=== PATIENT | male | born 1925 | race Caucasian/White ===

== ENCOUNTER 2017-03-29 09:16 | Inpatient (IN) | payer MEDICARE, BC ==
[2017-03-29 10:17] LABS: VENOUS BLOOD BASE EXCESS 2.1 mmol/L; VENOUS BLOOD HCO3 26.5 mmol/L (20-32); VENOUS BLOOD PCO2 40.4 mmHg (35-63); VENOUS BLOOD PH 7.44 (7.30-7.42)
[2017-03-29 10:18] LABS: ABSOLUTE EOSINOPHILS # (AUTO) 0.6 10^3/uL (0.0-0.6); ABSOLUTE LYMPHOCYTES (AUTO) 1.6 10^3/uL (0.5-4.7); ABSOLUTE MONOCYTES (AUTO) 0.9 10^3/uL (0.1-1.4); ABSOLUTE NEUT (AUTO) 5.9 10^3/uL (1.7-8.2); BASOPHILS % (AUTO) 0.3 % (0-2); EOSINOPHILS % (AUTO) 6.8 % (0-6); HEMATOCRIT 42.6 % (37.9-51.0); HEMOGLOBIN 14.3 g/dL (13.5-17.0); HGB HCT DIFFERENCE 0.3; LYMPHOCYTES % (AUTO) 17.8 % (13-45); MEAN CORPUSCULAR HEMOGLOBIN 31.2 pg (27.0-33.4); MEAN CORPUSCULAR HGB CONC 33.5 g/dL (32.0-36.0); MEAN CORPUSCULAR VOLUME 93 fl (80-97); MONOCYTES % (AUTO) 10.4 % (3-13); RED BLOOD COUNT 4.57 10^6/uL (4.35-5.55); RED CELL DISTRIBUTION WIDTH 13.5 % (11.5-14.0); SEGMENTED NEUTROPHILS % (AUTO) 64.7 % (42-78); WHITE BLOOD COUNT 9.1 10^3/uL (4.0-10.5)
--- NOTE | 2017-03-29 10:26 | ER Document Report ---
ED General - General Chief Complaint: Respiratory Distress Stated Complaint: WEAKNESS Time Seen by Provider: 03/29/17 09:49 Mode of Arrival: Medic Information source: Patient Notes: This is a 89-year-old male brought in from a nursing facility for evaluation of possible pneumonia. Patient was hospitalized approximately a week and a half ago. Had a sacral fracture. Has been coughing and looking like he was more short of breath. Was sent here for rule out pneumonia. Patient denies any pain other than in his "butt" TRAVEL OUTSIDE OF THE [place] IN LAST 30 DAYS: No - HPI Onset: Last week Onset/Duration: Gradual - Related Data Allergies/Adverse Reactions: No Known Allergies Allergy (Unverified 04/18/13 01:12) Home Medications: Current Home Medications Guaifenesin [Mucinex] 600 mg PO BID 03/29/17 [History] Ipratropium/Albuterol Sulfate [Duoneb 3 ml Ampul] 1 pkg IN Q6 PRN 03/29/17 [ History] Past Medical History - General Information source: Friend, Transfer Record - Social History Smoking Status: Never Smoker Chew tobacco use (# tins/day): No Frequency of alcohol use: None Drug Abuse: None Family History: Reviewed & Not Pertinent Patient has suicidal ideation: No Patient has homicidal ideation: No - Past Medical History Cardiac Medical History: Reports: Hx Coronary Artery Disease, Hx Heart Attack - bypass, Hx Hypercholesterolemia Pulmonary Medical History: Reports: Hx Pneumonia - 2012 Denies: Hx Tuberculosis Renal/ Medical History: Denies: Hx Peritoneal Dialysis Musculoskeltal Medical History: Reports Hx Arthritis, Reports Hx Muscle Weakness , Reports Hx Musculoskeletal Deformity, Reports Hx Musculoskeletal Trauma Traumatic Medical History: Reports: Hx Fractures, Hx Traumatic Brain Injury Past Surgical History: Reports: Hx Appendectomy, Hx Cardiac Catheterization, Hx Cardiac Surgery - cardiac bypass, Hx Coronary Artery Bypass Graft, Hx Orthopedic Surgery - left hip replacement, ORIF of left arm - Immunizations Immunizations up to date: Yes Hx Diphtheria, Pertussis, Tetanus Vaccination: Yes Hx Pneumococcal Vaccination: 05/25/09 Review of Systems - Review of Systems Constitutional: No symptoms reported EENT: No symptoms reported Cardiovascular: No symptoms reported Respiratory: No symptoms reported, Cough, Short of breath Gastrointestinal: No symptoms reported Genitourinary: No symptoms reported Male Genitourinary: No symptoms reported Musculoskeletal: No symptoms reported, Other - Sacral painhip pain Skin: No symptoms reported Hematologic/Lymphatic: No symptoms reported Neurological/Psychological: No symptoms reported Physical Exam - Vital signs Vitals: Temp Pulse BP Pulse Ox 98.0 F 75 132/56 H 91 L 03/29/17 09:23 03/29/17 09:23 03/29/17 09:23 03/29/17 09:23 Interpretation: Normal - General General appearance: Appears well, Alert - HEENT Head: Normocephalic, Atraumatic Eyes: Normal Pupils: PERRL - Respiratory Respiratory status: No respiratory distress Chest status: Nontender Breath sounds: Normal Chest palpation: Normal - Cardiovascular Rhythm: Regular Heart sounds: Normal auscultation Murmur: No - Abdominal Inspection: Normal Distension: No distension Bowel sounds: Normal Tenderness: Nontender Organomegaly: No organomegaly - Back Back: Normal, Tender - Sacral tenderness - Extremities General upper extremity: Normal inspection, Nontender, Normal color, Normal ROM , Normal temperature General lower extremity: Normal inspection, Nontender, Normal color, Normal ROM , Normal temperature, Normal weight bearing. No: Murtaza's sign - Neurological Neuro grossly intact: Yes Cognition: Normal Orientation: AAOx4 Gerda Coma Scale Eye Opening: Spontaneous [place] Coma Scale Verbal: Oriented [place] Coma Scale Motor: Obeys Commands Gerda Coma Scale Total: 15 Speech: Normal Motor strength normal: LUE, RUE, LLE, RLE Sensory: Normal - Psychological Associated symptoms: Normal affect, Normal mood - Skin Skin Temperature: Warm Skin Moisture: Dry Skin Color: Normal Course - Re-evaluation Re-evalutation: 03/29/17 10:56 Well-appearing 89-year-old male no acute distress at this time. Was hospitalized for pain management and sacral fracture. Will get chest x-ray, basic labs, repeat pelvis x-ray. May need to do a angiogram to rule out PE as well. 03/29/17 12:34 Waiting on results from CT angioma at this time. I do not feel patient is in respiratory distress patient is actually oxygenating quite well. Lungs are clear. 03/29/17 13:32 Laboratory 03/29/17 03/29/17 03/29/17 09:35 09:35 09:35 WBC 9.1 RBC 4.57 Hgb 14.3 Hct 42.6 MCV 93 MCH 31.2 MCHC 33.5 RDW 13.5 Plt Count 352 Seg Neutrophils % 64.7 Lymphocytes % 17.8 Monocytes % 10.4 Eosinophils % 6.8 H Basophils % 0.3 Absolute Neutrophils 5.9 Absolute Lymphocytes 1.6 Absolute Monocytes 0.9 Absolute Eosinophils 0.6 Absolute Basophils 0.0 PT 15.0 INR 1.10 VBG pH VBG pCO2 VBG HCO3 VBG Base Excess Sodium 143.5 Potassium 4.0 Chloride 107 Carbon Dioxide 27 Anion Gap 10 BUN 15 Creatinine 1.00 Est GFR ( Amer) > 60 Est GFR (Non-Af Amer) > 60 Glucose 127 H POC Glucose Lactic Acid Calcium 8.4 Total Bilirubin 0.7 Direct Bilirubin 0.5 H Indirect Bilirubin Not Reportable Neonat Total Bilirubin Not Reportable AST 24 ALT 35 Alkaline Phosphatase 175 H Total Protein 6.2 L Albumin 3.2 L Urine Color Urine Appearance Urine pH Ur Specific [place] Urine Protein Urine Glucose (UA) Urine Ketones Urine Blood Urine Nitrite Urine Bilirubin Urine Urobilinogen Ur Leukocyte Esterase Urine WBC (Auto) Urine RBC (Auto) U Hyaline Cast (Auto) Squamous Epi Cells Auto Urine Mucus (Auto) Urine Ascorbic Acid 03/29/17 03/29/17 03/29/17 09:35 09:35 10:03 WBC RBC Hgb Hct MCV MCH MCHC RDW Plt Count Seg Neutrophils % Lymphocytes % Monocytes % Eosinophils % Basophils % Absolute Neutrophils Absolute Lymphocytes Absolute Monocytes Absolute Eosinophils Absolute Basophils PT INR VBG pH 7.44 H VBG pCO2 40.4 VBG HCO3 26.5 VBG Base Excess 2.1 Sodium Potassium Chloride Carbon Dioxide Anion Gap BUN Creatinine Est GFR ( Amer) Est GFR (Non-Af Amer) Glucose POC Glucose 105 Lactic Acid 1.1 Calcium Total Bilirubin Direct Bilirubin Indirect Bilirubin Neonat Total Bilirubin AST ALT Alkaline Phosphatase Total Protein Albumin Urine Color Urine Appearance Urine pH Ur Specific [place] Urine Protein Urine Glucose (UA) Urine Ketones Urine Blood Urine Nitrite Urine Bilirubin Urine Urobilinogen Ur Leukocyte Esterase Urine WBC (Auto) Urine RBC (Auto) U Hyaline Cast (Auto) Squamous Epi Cells Auto Urine Mucus (Auto) Urine Ascorbic Acid 03/29/17 10:16 WBC RBC Hgb Hct MCV MCH MCHC RDW Plt Count Seg Neutrophils % Lymphocytes % Monocytes % Eosinophils % Basophils % Absolute Neutrophils Absolute Lymphocytes Absolute Monocytes Absolute Eosinophils Absolute Basophils PT INR VBG pH VBG pCO2 VBG HCO3 VBG Base Excess Sodium Potassium Chloride Carbon Dioxide Anion Gap BUN Creatinine Est GFR ( Amer) Est GFR (Non-Af Amer) Glucose POC Glucose Lactic Acid Calcium Total Bilirubin Direct Bilirubin Indirect Bilirubin Neonat Total Bilirubin AST ALT Alkaline Phosphatase Total Protein Albumin Urine Color YELLOW Urine Appearance SLIGHTLY-CLOUDY Urine pH 6.0 Ur Specific [place] 1.015 Urine Protein NEGATIVE Urine Glucose (UA) NEGATIVE Urine Ketones NEGATIVE Urine Blood NEGATIVE Urine Nitrite NEGATIVE Urine Bilirubin NEGATIVE Urine Urobilinogen 4.0 H Ur Leukocyte Esterase NEGATIVE Urine WBC (Auto) 2 Urine RBC (Auto) 1 U Hyaline Cast (Auto) 1 Squamous Epi Cells Auto 3 Urine Mucus (Auto) RARE Urine Ascorbic Acid NEGATIVE Chest X-Ray 03/29/17 09:19 IMPRESSION: Old CABG Old chronic posttraumatic changes left chest with multiple rib fractures, pleural thickening and chronic left lower lobe volume loss Pelvis X-Ray 03/29/17 10:43 IMPRESSION: Hairline nondisplaced left sacral ala fracture seen on CT exam is not apparent by plain film. Bones are osteoporotic with advanced osteoarthritis right hip, and old left hip replacement. Chest/Abdomen CTA 03/29/17 11:06 IMPRESSION: 1. No PE. 2. Chronic left pleural effusion. There is no evidence of pneumonia. There is no evidence of PE. Patient has old rib fractures with a left sided pleural issues but unchanged from prior. No acute issues at this time. Labs are fairly unremarkable. Comfortable at discharge discharging - Vital Signs Vital signs: Temp Pulse Resp BP Pulse Ox 98.0 F 75 20 141/66 H 95 03/29/17 10:00 03/29/17 09:23 03/29/17 13:01 03/29/17 13:01 03/29/17 13:01 - Laboratory Result Diagrams: 03/29/17 09:35 03/29/17 09:35 Laboratory results interpreted by me: 03/29/17 03/29/17 03/29/17 09:35 09:35 09:35 Eosinophils % 6.8 H VBG pH 7.44 H Glucose 127 H Direct Bilirubin 0.5 H Alkaline Phosphatase 175 H Total Protein 6.2 L Albumin 3.2 L Urine Urobilinogen 03/29/17 10:16 Eosinophils % VBG pH Glucose Direct Bilirubin Alkaline Phosphatase Total Protein Albumin Urine Urobilinogen 4.0 H - EKG Interpretation by [facility] EKG shows normal: Sinus rhythm, [place], Intervals, QRS Complexes, ST-T Waves [place]/QRS: RBBB Discharge - Discharge Clinical Impression: Sacral fracture, closed Qualifiers: Encounter type: sequela Zone of sacrum fracture: unspecified portion of sacrum Qualified Code(s): S32.10XS - Unspecified fracture of sacrum, sequela Condition: Good Disposition: HOME, SELF-CARE Instructions: Coccyx Fracture ([facility]), Cough Suppressant & Expectorant Medications Additional Instructions: No major findings were seen today. You have a stable fracture of your sacrum as known prior previously. There does not appear to be any pneumonia or blood clot in the lung. Please follow-up with your regular doctor. Referrals: DOMENIC GUADARRAMA MD [Primary Care Provider] - Follow up as needed
[2017-03-29 10:35] LABS: ALANINE AMINOTRANSFERASE 35 U/L (21-72); ALBUMIN 3.2 g/dL (3.5-5.0); ALKALINE PHOSPHATASE 175 U/L (38-126); ANION GAP 10 (5-19); ASPARTATE AMINO TRANSFERASE 24 U/L (17-59); BILIRUBIN,DIRECT 0.5 mg/dL (0.0-0.4); BILIRUBIN,TOTAL 0.7 mg/dL (0.2-1.3); BLOOD UREA NITROGEN 15 mg/dL (7-20); CALCIUM 8.4 mg/dL (8.4-10.2); CARBON DIOXIDE 27 mmol/L (22-30); CHLORIDE 107 mmol/L (98-107); GLUCOSE 127 mg/dL (75-110); SODIUM 143.5 mmol/L (137-145); TOTAL PROTEIN 6.2 g/dL (6.3-8.2)
[2017-03-29 10:36] LABS: APPEARANCE,URINE SLIGHTLY-CLOUDY; BILIRUBIN,URINE NEGATIVE (NEGATIVE); GLUCOSE, URINE NEGATIVE (NEGATIVE); KETONES,URINE NEGATIVE (NEGATIVE); LEUKOCYTE ESTERASE,URINE NEGATIVE (NEGATIVE); NITRITE,URINE NEGATIVE (NEGATIVE); PROTEIN,URINE NEGATIVE (NEGATIVE); URINE SPECIFIC GRAVITY 1.015
--- NOTE | 2017-03-29 10:56 | RADIOLOGY REPORT (SQ) ---
EXAM DESCRIPTION: CHEST PA/LAT COMPLETED DATE/TIME: 03/29/2017 10:30 am REASON FOR STUDY: bed 16 sepsis protocol COMPARISON: Chest films 04/21/2013, 04/22/2013, 03/16/2017 EXAM PARAMETERS: NUMBER OF VIEWS: two views TECHNIQUE: Digital Frontal and Lateral radiographic views of the chest acquired. RADIATION DOSE: NA LIMITATIONS: none FINDINGS: LUNGS AND PLEURA: Right lung is clear. On the left side, there is chronic pleural thickening and volume loss/ consolidation in the left lowe r lobe. No acute infiltrates, pleural effusion or pneumothorax. MEDIASTINUM AND HILAR STRUCTURES: No masses or contour abnormalities. HEART AND VASCULAR STRUCTURES: No cardiomegaly. Old sternotomy from CABG BONES: Osteoporotic with multiple old healed left posterior rib fractures HARDWARE: None in the chest. OTHER: No other significant finding. IMPRESSION: Old CABG Old chronic posttraumatic changes left chest with multiple rib fractures, pleural thickening and shop assistant jennifer left lower lobe volume loss TECHNICAL DOCUMENTATION: JOB ID: [id number]- All Rights Reserved
--- NOTE | 2017-03-29 11:36 | RADIOLOGY REPORT (SQ) ---
EXAM DESCRIPTION: PELVIS AP COMPLETED DATE/TIME: 03/29/2017 11:22 am REASON FOR STUDY: recent fx of sacrum, pain worse COMPARISON: CT pelvis 03/13/2017 NUMBER OF VIEWS: One view TECHNIQUE: AP Pelvis LIMITATIONS: Bones are osteoporotic FINDINGS: MINERALIZATION: Osteoporotic HIPS: High-grade joint space narrowing with [id number] appearance right hip. Left total hip replac ement. Femoral component incompletely included in the field of view. PELVIS AND SACRUM: The nondisplaced hairline fracture through the left sacrum seen on CT exam 017 is not apparent by plain film. No other pelvic fractures are suspected by today's plain films. PUBIS AND ISCHIUM: No acute fracture. LOWER LUMBAR SPINE: Ankylosis across the L5-S1 disc space SOFT TISSUES: No findings. OTHER: No other significant finding. IMPRESSION: Hairline nondisplaced left sacral ala fracture seen on CT exam 03/13/2017 is not apparen t by plain film. Bones are osteoporotic with advanced osteoarthritis right hip, and old left hip replacement. TECHNICAL DOCUMENTATION: JOB ID: [id number]- All Rights Reserved
[2017-03-29] MEDS ORDERED: ALBUTEROL SULFATE 0.083% NEB 2.5 MG/3 ML AMPUL NEB ONE (11:39)
--- NOTE | 2017-03-29 12:38 | RADIOLOGY REPORT (SQ) ---
EXAM DESCRIPTION: CTA CHEST COMPLETED DATE/TIME: 03/29/2017 11:54 am REASON FOR STUDY: CT angiogram rule out PE COMPARISON: None. TECHNIQUE: CT scan of the chest performed using helical scanning technique with dynamic intravenous contrast injection. Images reviewed with lung, soft tissue and bone windows. Reconstructed coronal and sagittal MPR images reviewed. Additional 3 dimensional post-processing performed to develop Maximal Intensity Projection images ([place] P). All images stored on PACS. All CT scanners at this facility use dose modulation, iterative reconstruction, and/or weight based d osing when appropriate to reduce radiation dose to as low as reasonably achievable (ALARA). [facility]: Dose Right [facility]: CareDose [facility]: Dose Right [facility]: Teradose 4D [facility]: Sellywhere CONTRAST TYPE AND DOSE: contrast/concentration: Isovue 370.00 mg/ml; Total Contrast Delivered: 82.0 ml; Total Saline Delivered: 110.1 ml Contrast bolus optimized for the pulmonary arteries. Not diagnostic for the aorta. RENAL FUNCTION: BUN 15 creatinine 1.0 RADIATION DOSE: Up-to-date CT equipment and radiation dose reduction techniques were employed. CTDIv ol: 3.3 - 23.5 mGy. DLP: 852 mGy-cm. . LIMITATIONS: Motion. FINDINGS: LUNGS AND PLEURA: Chronic interstitial lung disease. Chronic left lower lobe pleural effu adele volume estimated 500 cc. Trace right pleural effusion. AORTA AND GREAT VESSELS: No aneurysm. Contrast bolus not optimized for the aorta. HEART: No pericardial effusion. Moderate to marked coronary artery calcifications. PULMONARY ARTERIES: No emboli visualized in the main pulmonary arteries or the segmental branches. HILAR AND MEDIASTINAL STRUCTURES: No identified masses or abnormal nodes. HARDWARE: None in the chest. UPPER ABDOMEN: No significant findings. Limited exam. THYROID AND OTHER SOFT TISSUES: No masses. No adenopathy. BONES: No acute or significant finding. 3D MIPS: Confirm above findings. OTHER: No other significant finding. IMPRESSION: 1. No PE. 2. Chronic left pleural effusion. COMMENT: Quality ID # [id number]: Final reports with documentation of one or more dose reduction techniques (e.g., Automated exposure control, adjustment of the mA and/or kV according to patient size, use of iterative reconstruction technique) TECHNICAL DOCUMENTATION: JOB ID: [id number] All Rights Reserved
--- NOTE | 2017-03-29 15:01 | EKG REPORT ---
SEVERITY:- ABNORMAL ECG - SINUS RHYTHM RIGHT BUNDLE BRANCH BLOCK INFERIOR INFARCT, AGE INDETERMINATE : Confirmed by: Lynette Alonso 29-Mar-2017 15:00:12
[2017-03-29] MEDS ORDERED: GLYCERIN (PEDIATRIC) SUPP.RECT PR PRN (19:23)
[2017-03-29] MEDS ORDERED: NITROGLYCERIN 0.4 MG/TAB 25 TAB/BOTTLE SL PRN (19:23)
[2017-03-29] MEDS ORDERED: IPRATROPIUM/ALBUTEROL 0.5-2.5 MG/3 ML AMPUL NEB PRN ×2 (19:23)
--- NOTE | 2017-03-29 20:42 | PDOC H&P ---
History of Present Illness Admission Date/PCP: 03/29/17 16:49 Patient complains of: Shortness of breath History of Present Illness: BÁRBARA ROBERT JR is a 89 year old male with history of CAD status post CABG in the past. Patient had recent admission for sacral fracture after a fall about 2 weeks ago, discharged to rehab. Patient had increased shortness of breath facility and Chest x-ray was done and there was concern for pneumonia. Patient was sent to the ED where evaluation was significant for 500 cc left pleural effusion on CTA of the chest, no PE. BNP elevated at 600. Patient denies chest pain, no palpitations. He has some orthopnea, but no PND. Denies fever or chills. Has intermittent lower extremity swelling. He is being admitted for further evaluation and management. Past Medical History Cardiac Medical History: Reports: Coronary Artery Disease, Myocardial Infarction - bypass, Hyperlipidema Pulmonary Medical History: Reports: Pneumonia - 2012 Renal/ Medical History: Reports: Other - BPH Musculoskeltal Medical History: Reports: Arthritis Traumatic Medical History: Reports: Other - Sacral fracture Past Surgical History Past Surgical History: Reports: Appendectomy, Cardiac Catheterization, Coronary Artery Bypass Graft, Orthopedic Surgery - left hip replacement, ORIF of left arm Social History Smoking Status: Never Smoker Frequency of Alcohol Use: None Hx Recreational Drug Use: No Hx Prescription Drug Abuse: No - Advance Directive Resuscitation Status: Do Not Resuscitate Family History Family History: Reviewed & Not Pertinent Parental Family History Reviewed: Yes Children Family History Reviewed: Yes Sibling(s) Family History Reviewed.: Yes Medication/Allergy Home Medications: Clopidogrel Bisulfate [Plavix 75 mg Tablet] 75 mg PO DAILY 03/14/17 Lansoprazole [Prevacid 15 mg Odt Tablet] 15 mg PO BID 03/14/17 Metoprolol Succinate [Toprol Xl] 25 mg PO Q12 03/14/17 Pravastatin Sodium [Pravachol] 40 mg PO DAILY 03/14/17 Tamsulosin HCl [Flomax 0.4 mg Cap.sr] 0.4 mg PO DAILY 03/14/17 Cholecalciferol (Vitamin D3) [Vitamin D3 2000 unit Tablet] 2,000 unit PO DAILY 03/15/17 Cyanocobalamin (Vitamin B-12) [Vitamin B-12] 1,000 mcg SL DAILY 03/15/17 Furosemide [Lasix 20 mg Tablet] 20 mg PO QAM 03/15/17 Nitroglycerin [Nitrostat 0.4 mg (1/150 Gr) Tabs 25/Bottle] 1 tab SL ASDIR PRN Vitamin E (Dl, Acetate) [Vitamin E 400 Unit Capsule] 400 unit PO DAILY 03/15/17 Aspirin [Aspirin EC] 81 mg PO DAILY 03/16/17 Acetaminophen [Tylenol 325 mg Tablet] 650 mg PO Q8HP PRN 30 Days #100 tablet Docusate Sodium [Colace 100 mg Capsule] 100 mg PO BID #60 capsule 03/23/17 Glycerin [Sani-Supp (Pediatric) 1 Ea Supp.rect] 1 each ND DAILYP PRN #30 supp.rect 03/23/17 Hydrocodone/Acetaminophen [[place] 7.5-325 mg Tablet] 1 tab PO Q6HP PRN #20 tablet 03/23/17 Ipratropium/Albuterol Sulfate [Duoneb 3 ml Ampul] 3 ml NEB RTQ6HP PRN #30 vial.neb 03/23/17 Oxycodone HCl [Oxycontin Sr 10 mg Tablet] 10 mg PO Q12 #14 tab.sr.12h 03/23/17 Polyethylene Glycol 3350 [Miralax Powder 17 gm/Packet] 17 gm PO DAILY #14 powd.pack 03/23/17 Sennosides/Docusate 8.6-50 mg [Senna Plus Tablet] 2 each PO QHS #60 tablet 03/23 Guaifenesin [Mucinex] 600 mg PO BID 03/29/17 Ipratropium/Albuterol Sulfate [Duoneb 3 ml Ampul] 1 pkg IN Q6 PRN 03/29/17 Allergies/Adverse Reactions: No Known Allergies Allergy (Unverified 04/18/13 01:12) Review of Systems Review of Systems: As imaged. Physical Exam Vital Signs: Temp Pulse Resp BP Pulse Ox 98.0 F 75 18 149/65 H 97 03/29/17 10:00 03/29/17 09:23 03/29/17 19:01 03/29/17 19:01 03/29/17 19:27 General appearance: PRESENT: no acute distress, well-developed Head exam: PRESENT: atraumatic, normocephalic Eye exam: PRESENT: EOMI, PERRLA Mouth exam: PRESENT: moist, neck supple Neck exam: PRESENT: full ROM Respiratory exam: PRESENT: crackles, decreased breath sounds Cardiovascular exam: PRESENT: RRR, +S1, +S2 GI/Abdominal exam: PRESENT: soft. ABSENT: tenderness Extremities exam: PRESENT: pedal edema, +1 edema. ABSENT: calf tenderness, joint swelling Neurological exam: PRESENT: alert, oriented to person, oriented to place, CN II- XII grossly intact Psychiatric exam: PRESENT: normal mood. ABSENT: homicidal ideation, suicidal ideation Results Impressions: Chest X-Ray 03/29/17 09:19 IMPRESSION: Old CABG Old chronic posttraumatic changes left chest with multiple rib fractures, pleural thickening and chronic left lower lobe volume loss Pelvis X-Ray 03/29/17 10:43 IMPRESSION: Hairline nondisplaced left sacral ala fracture seen on CT exam is not apparent by plain film. Bones are osteoporotic with advanced osteoarthritis right hip, and old left hip replacement. Chest/Abdomen CTA 03/29/17 11:06 IMPRESSION: 1. No PE. 2. 500 cc left pleural effusion. Assessment & Plan - Diagnosis (1) Recurrent left pleural effusion Is this a current diagnosis for this admission?: Yes Plan: Suspect this is because of patient's shortness of breath. May be secondary to CHF, especially in light of elevated BNP as well. Will treat with Lasix IV 40 mg twice daily for now--patient on Lasix 20 mg as outpatient. Will check echocardiogram. (2) Sacral fracture, closed Qualifiers: Encounter type: sequela Zone of sacrum fracture: unspecified portion of sacrum Qualified Code(s): S32.10XS - Unspecified fracture of sacrum, sequela Plan: This is part of the etiology of patient's pain. Continue pain management (3) CAD (coronary artery disease) Qualifiers: Coronary Disease-Associated Artery/Lesion type: [place] artery [place] vs. transplanted heart: [place] heart Associated angina: without angina Qualified Code(s): I25.10 - Atherosclerotic heart disease of [place] coronary artery without angina pectoris Plan: Stable. No chest pain at this time. (4) Hypertension Qualifiers: Hypertension type: essential hypertension Qualified Code(s): I10 - Essential (primary) hypertension Plan: Stable. - Time Time Spent: Greater than 70 Minutes - Inpatient Certification Based on my medical assessment, after consideration of the patient's comorbidities, presenting symptoms, or acuity I expect that the services needed warrant INPATIENT care.: Yes I certify that my determination is in accordance with my understanding of Medicare's requirements for reasonable and necessary INPATIENT services [42 CFR 412.3e].: Yes Medical Necessity: Significant Comorbidiites Make Outpatient Treatment Too Risky
[2017-03-29] MEDS: OXYCODONE HCL SR 10 MG TABLET PO SCH (21:07)
[2017-03-29] MEDS: SENNOSIDES/DOCUSATE 8.6-50 MG 1 EACH TABLET PO SCH (21:07)
[2017-03-29] MEDS: METOPROLOL SUCCINATE 50 MG TAB.SR.24H PO SCH (21:07)
[2017-03-29] MEDS: FUROSEMIDE INJ/PF 40 MG/4 ML SDV IV SCH (21:08)
[2017-03-29] MEDS: ATORVASTATIN CALCIUM 10 MG TABLET PO SCH (21:08)
[2017-03-30] MEDS: ENOXAPARIN SODIUM INJ 40 MG/0.4 ML DISP.SYRIN SUBCUT SCH (10:07)
[2017-03-30] MEDS: LANSOPRAZOLE 15 MG TAB.RAP.DR PO SCH ×2 (10:08→17:30)
[2017-03-30] MEDS: CHOLECALCIFEROL (D3) 1,000 UNIT TABLET PO SCH (10:08)
[2017-03-30] MEDS: ACETAMINOPHEN 325 MG TABLET PO PRN ×2 (10:13→18:06)
[2017-03-30] MEDS: ASPIRIN 81 MG TABLET, ENT COATED PO SCH (10:16)
[2017-03-30] MEDS: METOPROLOL SUCCINATE 50 MG TAB.SR.24H PO SCH ×2 (10:16→22:54)
[2017-03-30] MEDS: CYANOCOBALAMIN (VITAMIN B-12) 1,000 MCG TABLET PO SCH (10:17)
[2017-03-30] MEDS: GUAIFENESIN 600 MG TABLET.SA PO SCH ×2 (10:18→22:54)
[2017-03-30] MEDS: DOCUSATE SODIUM 100 MG CAPSULE PO SCH ×2 (10:18→17:33)
[2017-03-30] MEDS: FUROSEMIDE INJ/PF 40 MG/4 ML SDV IV SCH ×2 (10:19→22:54)
[2017-03-30] MEDS: VITAMIN E (DL, ACETATE) 400 UNIT CAPSULE PO SCH (10:20)
[2017-03-30] MEDS: TAMSULOSIN HCL 0.4 MG CAP.SR.24H PO SCH (10:24)
[2017-03-30] MEDS: POLYETHYLENE GLYCOL 3350 POWDER 17 GM/1 PACKET PO SCH (10:25)
[2017-03-30 11:45] LABS: ABSOLUTE EOSINOPHILS # (AUTO) 0.4 10^3/uL (0.0-0.6); ABSOLUTE LYMPHOCYTES (AUTO) 1.6 10^3/uL (0.5-4.7); ABSOLUTE MONOCYTES (AUTO) 0.9 10^3/uL (0.1-1.4); ABSOLUTE NEUT (AUTO) 7.2 10^3/uL (1.7-8.2); BASOPHILS % (AUTO) 0.3 % (0-2); HEMATOCRIT 45.1 % (37.9-51.0); HEMOGLOBIN 15.1 g/dL (13.5-17.0); HGB HCT DIFFERENCE 0.2; LYMPHOCYTES % (AUTO) 15.9 % (13-45); MEAN CORPUSCULAR HEMOGLOBIN 31.6 pg (27.0-33.4); MEAN CORPUSCULAR HGB CONC 33.5 g/dL (32.0-36.0); MEAN CORPUSCULAR VOLUME 94 fl (80-97); MONOCYTES % (AUTO) 8.6 % (3-13); RED BLOOD COUNT 4.78 10^6/uL (4.35-5.55); RED CELL DISTRIBUTION WIDTH 13.6 % (11.5-14.0); SEGMENTED NEUTROPHILS % (AUTO) 71.2 % (42-78); WHITE BLOOD COUNT 10.2 10^3/uL (4.0-10.5)
[2017-03-30 12:18] LABS: ALANINE AMINOTRANSFERASE 39 U/L (21-72); ALBUMIN 3.4 g/dL (3.5-5.0); ALKALINE PHOSPHATASE 214 U/L (38-126); ANION GAP 12 (5-19); ASPARTATE AMINO TRANSFERASE 22 U/L (17-59); BILIRUBIN,DIRECT 0.6 mg/dL (0.0-0.4); BILIRUBIN,TOTAL 0.9 mg/dL (0.2-1.3); BLOOD UREA NITROGEN 15 mg/dL (7-20); CALCIUM 8.8 mg/dL (8.4-10.2); CARBON DIOXIDE 29 mmol/L (22-30); CHLORIDE 100 mmol/L (98-107); CREATININE RESULT 0.99 mg/dL (0.52-1.25); GLUCOSE 103 mg/dL (75-110); TOTAL PROTEIN 6.4 g/dL (6.3-8.2)
--- NOTE | 2017-03-30 13:24 | Physician Advisory Note ---
Physician Advisor ProgressNote .: Pursuant to the plan for [facility], I have reviewed the medical record for this patient. Physician Advisor Statement: Please consider documentin. "Chronic Interstitial Lung Disease" 2. "Acute ___[systolic? diastolic? systolic & diastolic?] CHF, evidenced by __ ___" 3. Medical necessity: please document reasons pt not able to go 'home' today - Ex: "Breathing not yet back to baseline"? "Persistent/recurrent ____"? "I am concerned about " "Continues to need IV Lasix with close monitoring of lytes & renal fn because ", ... 4. Clarification: Is Lt pleural effusion acute or chronic? STatus: 89yo w/CAD, past CABG, chronic ILD by CT, recent sacral fx, came in w/cough/SOB , sats 90-91%, tachypnea but no resp distress, BNP 599, Lt pleural effusion on CXR & CT concerning for acute CHF __ type. Given IV LAsix q12h with net UOP 2525ml in 1st day per I/O record. GIven O2 2L, ECHO ordered, along w/followup chemistries 03/30. Acute ___ CHF is typically most appropriate to come in as Outpt Obs initially, changing to Inpatient the next day if not sufficiently improved for d/c. This Medicare patient has spent 1 night in hospital care. Nursing notes indicate he is still unable to lie flat this AM, still with dyspnea with exertion. If attending documents clinical reasons pt cannot be d/c'd today safely, then pt is appropriate for Inpatient status. Thanks! CK
[2017-03-30] MEDS: OXYCODONE HCL SR 10 MG TABLET PO SCH ×2 (13:49→22:54)
--- NOTE | 2017-03-30 16:38 | XCELERA REPORT ---
[address] [address] Transthoracic Echocardiogram Report Name: ROBERTBÁRBARA JR Age: 89 yrs Gender: Male : 1925 Patient Status: Inpatient Patient Location: [address] [place] [address] Study Date: 03/30/2017 01:50 PM Height: 74 in Weight: 229 lb BSA: 2.3 m2 Procedure: A two-dimensional transthoracic echocardiogram with color flow and Doppler was performed. The study was technically difficult with many images being suboptimal in quality. Study Quality: Technically suboptimal. Reason For Study: Dyspnea, LT pleural effusion History: Dyspnea, LT pleural effusion. Ordering Physician: RICHARD DE ANDA Performed By: Wilma Bello Interpretation Summary The left ventricle is mildly dilated. There is mild concentric left ventricular hypertrophy. LV EF is 35% to 40% Left ventricular systolic function is moderately reduced. Doppler measurements suggest impaired left ventricular relaxation, which is associated with grade I/IV or mild diastolic dysfunction There is moderate global hypokinesis of the left ventricle. There is no thrombus. The right ventricle is not well visualized secondary to technical limitations The left atrial size is normal. There is no evidence of mitral valve prolapse. There is no vegetation seen on the mitral valve. There is no mitral valve stenosis. There is no mitral regurgitation noted. There is no aortic valvular vegetation. There is Aortic Sclerosis without stenosis. There is no LVOT obstruction. No aortic regurgitation is present. There is no tricuspid stenosis. No tricuspid regurgitation. Unable to calculate TrR due to insufficient TR jet. There is no pericardial effusion. MMode/2D Measurements & Calculations RVDd: 4.1 cm LVIDd: 4.8 cmFS: 16.6 % Ao root diam: 3.1 cm IVSd: 1.2 cm LVIDs: 4.0 cmEDV(Teich): 107.5 ml LVPWd: 1.2 cmESV(Teich): 70.1 ml Ao root area: 7.4 cm2 EF(Teich): 34.8 % LA dimension: 2.7 cm LVOT diam: 2.3 cm LVOT area: 4.3 cm2 Doppler Measurements & Calculations MV E max ronn: MV P1/2t max ronn: Ao V2 max: LV V1 max P.2 cm/sec 61.7 cm/sec 192.0 cm/sec 3.4 mmHg MV A max ronn: MV P1/2t: 76.3 msec Ao max PG: LV V1 max: 89.8 cm/sec MVA(P1/2t): 2.9 cm2 14.7 mmHg 91.8 cm/sec MV E/A: 0.69 MV dec slope: FROY(V,D): 2.0 cm2 236.9 cm/sec2 PA V2 max: 97.2 cm/sec PA max P.8 mmHg Left Ventricle The left ventricle is mildly dilated. There is mild concentric left ventricular hypertrophy. LV EF is 35% to 40%. Left ventricular systolic function is moderately reduced. Doppler measurements suggest impaired left ventricular relaxation, which is associated with grade I/IV or mild diastolic dysfunction. There is moderate global hypokinesis of the left ventricle. There is no thrombus. Right Ventricle The right ventricle is not well visualized secondary to technical limitations. Atria The right atrium is normal. The left atrial size is normal. Mitral Valve There is no evidence of mitral valve prolapse. There is no vegetation seen on the mitral valve. There is no mitral valve stenosis. There is no mitral regurgitation noted. Aortic Valve There is no aortic valvular vegetation. There is Aortic Sclerosis without stenosis. There is no LVOT obstruction. No aortic regurgitation is present. Tricuspid Valve There is no tricuspid stenosis. No tricuspid regurgitation. Unable to calculate TrR due to insufficient TR jet. Pulmonic Valve There is no pulmonic valvular stenosis. There is no pulmonic valvular regurgitation. Great Vessels The aortic root is normal size. Effusions There is no pericardial effusion. : RICHARD DE ANDA > Smitha Bone
--- NOTE | 2017-03-30 19:03 | PDOC PROGRESS REPORT ---
Subjective Progress Note for:: 03/30/17 Subjective:: Doing better today, breathing improving, but still with difficulty laying flat. Diuresing well. No chest pain or palpitations, no fever or chills. Physical Exam Vital Signs: Temp Pulse Resp BP Pulse Ox 98.5 F 78 15 121/57 L 94 03/30/17 16:13 03/30/17 16:13 03/30/17 16:13 03/30/17 16:13 03/30/17 16:13 Intake & Output 03/29/17 03/30/17 03/31/17 06:59 06:59 06:59 Intake Total 300 Output Total 2825 Balance -2525 Weight 98.1 kg Exam: GENERAL: Well-developed, no acute distress CARDIOVASCULAR: RRR, normal S1-S2 LUNGS: Decreased breath sounds bilaterally with few bilateral crackles ABDOMEN: Soft, NT, NL bowel sounds EXTREMITIES: 1+ edema right extremity, no clubbing or cyanosis NEUROLOGICAL: Alert, oriented x 3 Results Laboratory Results: 03/30/17 10:47 03/30/17 10:47 03/30/17 03/30/17 03/30/17 10:47 10:47 10:47 WBC 10.2 RBC 4.78 Hgb 15.1 Hct 45.1 MCV 94 MCH 31.6 MCHC 33.5 RDW 13.6 Plt Count 375 Seg Neutrophils % 71.2 Lymphocytes % 15.9 Monocytes % 8.6 Eosinophils % 4.0 Basophils % 0.3 Absolute Neutrophils 7.2 Absolute Lymphocytes 1.6 Absolute Monocytes 0.9 Absolute Eosinophils 0.4 Absolute Basophils 0.0 Sodium 141.0 Potassium 4.0 Chloride 100 Carbon Dioxide 29 Anion Gap 12 BUN 15 Creatinine 0.99 Est GFR ( Amer) > 60 Est GFR (Non-Af Amer) > 60 Glucose 103 Calcium 8.8 Total Bilirubin 0.9 AST 22 ALT 39 Alkaline Phosphatase 214 H Total Protein 6.4 Albumin 3.4 L TSH 2.60 Impressions: Chest X-Ray 03/29/17 09:19 IMPRESSION: Old CABG Old chronic posttraumatic changes left chest with multiple rib fractures, pleural thickening and chronic left lower lobe volume loss Pelvis X-Ray 03/29/17 10:43 IMPRESSION: Hairline nondisplaced left sacral ala fracture seen on CT exam is not apparent by plain film. Bones are osteoporotic with advanced osteoarthritis right hip, and old left hip replacement. Chest/Abdomen CTA 03/29/17 11:06 IMPRESSION: 1. No PE. 2. Chronic left pleural effusion. Assessment & Plan - Diagnosis (1) Recurrent left pleural effusion Is this a current diagnosis for this admission?: Yes Plan: This is acute worsening on chronic right effusion. Suspect this is because of patient's shortness of breath. This is likely secondary to CHF, especially in light of elevated BNP as well. Echo on today showed EF 35-40%. Will continue with Lasix IV 40 mg twice daily for now--patient on Lasix 20 mg p.o. as outpatient. Follow-up chest x-ray PA/lateral in a.m. (2) Acute on chronic systolic (congestive) heart failure Is this a current diagnosis for this admission?: Yes Plan: BNP elevated at admission. Echo today showed EF 35-40%. Will continue Lasix 40 mg IV twice daily for now. Patient on beta-alpesh. Will add TOPHER inhibitor , lisinopril 5 mg daily to her medication regimen. Follow-up chest x-ray PA/ lateral in a.m. (3) Sacral fracture, closed Qualifiers: Encounter type: sequela Zone of sacrum fracture: unspecified portion of sacrum Qualified Code(s): S32.10XS - Unspecified fracture of sacrum, sequela Plan: This is part of the etiology of patient's pain. Continue pain management (4) CAD (coronary artery disease) Qualifiers: Coronary Disease-Associated Artery/Lesion type: [place] artery [place] vs. transplanted heart: [place] heart Associated angina: without angina Qualified Code(s): I25.10 - Atherosclerotic heart disease of [place] coronary artery without angina pectoris Plan: Stable. No chest pain at this time. (5) Hypertension Qualifiers: Hypertension type: essential hypertension Qualified Code(s): I10 - Essential (primary) hypertension Plan: Stable. - Inpatient Certification Based on my medical assessment, after consideration of the patient's comorbidities, presenting symptoms, or acuity I expect that the services needed warrant INPATIENT care.: Yes I certify that my determination is in accordance with my understanding of Medicare's requirements for reasonable and necessary INPATIENT services [42 CFR 412.3e].: Yes Medical Necessity: Other - Breathing is still not back to baseline and patient need monitoring and medications adjustment for acute on chronic CHF.
[2017-03-30 20:43] LABS: ABSOLUTE BASOPHILS # (AUTO) 0.1 10^3/uL (0.0-0.2); ABSOLUTE EOSINOPHILS # (AUTO) 0.5 10^3/uL (0.0-0.6); ABSOLUTE MONOCYTES (AUTO) 0.8 10^3/uL (0.1-1.4); ABSOLUTE NEUT (AUTO) 5.5 10^3/uL (1.7-8.2); BASOPHILS % (AUTO) 0.6 % (0-2); EOSINOPHILS % (AUTO) 6.1 % (0-6); HEMATOCRIT 39.3 % (37.9-51.0); HEMOGLOBIN 13.5 g/dL (13.5-17.0); HGB HCT DIFFERENCE 1.2; LYMPHOCYTES % (AUTO) 22.6 % (13-45); MEAN CORPUSCULAR HEMOGLOBIN 31.9 pg (27.0-33.4); MEAN CORPUSCULAR HGB CONC 34.4 g/dL (32.0-36.0); MEAN CORPUSCULAR VOLUME 93 fl (80-97); MONOCYTES % (AUTO) 9.4 % (3-13); RED BLOOD COUNT 4.23 10^6/uL (4.35-5.55); RED CELL DISTRIBUTION WIDTH 13.8 % (11.5-14.0); SEGMENTED NEUTROPHILS % (AUTO) 61.3 % (42-78)
[2017-03-30 21:03] LABS: ANION GAP 10 (5-19); BLOOD UREA NITROGEN 21 mg/dL (7-20); CALCIUM 8.3 mg/dL (8.4-10.2); CARBON DIOXIDE 27 mmol/L (22-30); CHLORIDE 102 mmol/L (98-107); GLUCOSE 111 mg/dL (75-110); POTASSIUM 3.9 mmol/L (3.6-5.0); SODIUM 138.6 mmol/L (137-145)
[2017-03-30] MEDS: ATORVASTATIN CALCIUM 10 MG TABLET PO SCH (22:54)
[2017-03-30] MEDS: SENNOSIDES/DOCUSATE 8.6-50 MG 1 EACH TABLET PO SCH (22:54)
[2017-03-30] MEDS: NYSTATIN CREAM 15 GM TP SCH (22:54)
--- NOTE | 2017-03-31 08:27 | RADIOLOGY REPORT (SQ) ---
EXAM DESCRIPTION: CHEST PA/LAT COMPLETED DATE/TIME: 03/31/2017 8:12 am REASON FOR STUDY: Pleaural effusion, CHF COMPARISON: CT angio chest 03/29/2017, Chest films 04/18/2013, 04/22/2013, 03/29/2017 EXAM PARAMETERS: NUMBER OF VIEWS: two views TECHNIQUE: Digital Frontal and Lateral radiographic views of the chest acquired. RADIATION DOSE: NA LIMITATIONS: none FINDINGS: LUNGS AND PLEURA: Right lung is free of focal infiltrates. On the left side, there is chronic pleural thickening and volume loss/ consolidation in the left lowe r lobe. No acute infiltrates, new pleural effusions, or pneumothorax. MEDIASTINUM AND HILAR STRUCTURES: No masses or contour abnormalities. HEART AND VASCULAR STRUCTURES: No cardiomegaly. Old sternotomy for CABG. BONES: Multiple old healed left posterior rib fractures. HARDWARE: None in the chest. OTHER: No other significant finding. IMPRESSION: No acute findings TECHNICAL DOCUMENTATION: JOB ID: [id number] [employer]- All Rights Reserved
[2017-03-31] MEDS ORDERED: ONDANSETRON HCL INJ/PF 4 MG/2 ML SDV IV PRN (09:01)
[2017-03-31] MEDS: POLYETHYLENE GLYCOL 3350 POWDER 17 GM/1 PACKET PO SCH (10:03)
[2017-03-31] MEDS: GUAIFENESIN 600 MG TABLET.SA PO SCH ×2 (10:04→22:39)
[2017-03-31] MEDS: LANSOPRAZOLE 15 MG TAB.RAP.DR PO SCH ×2 (10:04→17:52)
[2017-03-31] MEDS: DOCUSATE SODIUM 100 MG CAPSULE PO SCH ×2 (10:04→17:59)
[2017-03-31] MEDS: METOPROLOL SUCCINATE 50 MG TAB.SR.24H PO SCH ×2 (10:05→22:23)
[2017-03-31] MEDS: CHOLECALCIFEROL (D3) 1,000 UNIT TABLET PO SCH (10:05)
[2017-03-31] MEDS: LISINOPRIL 5 MG TABLET PO SCH (10:05)
[2017-03-31] MEDS: TAMSULOSIN HCL 0.4 MG CAP.SR.24H PO SCH (10:06)
[2017-03-31] MEDS: ASPIRIN 81 MG TABLET, ENT COATED PO SCH (10:06)
[2017-03-31] MEDS: OXYCODONE HCL SR 10 MG TABLET PO SCH ×2 (10:06→22:39)
[2017-03-31] MEDS: FUROSEMIDE INJ/PF 40 MG/4 ML SDV IV SCH ×2 (10:07→22:42)
[2017-03-31] MEDS: CYANOCOBALAMIN (VITAMIN B-12) 1,000 MCG TABLET PO SCH (10:07)
[2017-03-31] MEDS: NYSTATIN CREAM 15 GM TP SCH ×2 (10:08→22:39)
[2017-03-31] MEDS: ENOXAPARIN SODIUM INJ 40 MG/0.4 ML DISP.SYRIN SUBCUT SCH (10:08)
[2017-03-31] MEDS: VITAMIN E (DL, ACETATE) 400 UNIT CAPSULE PO SCH (10:09)
--- NOTE | 2017-03-31 16:04 | PDOC PROGRESS REPORT ---
Subjective Progress Note for:: 03/31/17 Subjective:: He reports that his shortness of breath is improved. Physical Exam Vital Signs: Temp Pulse Resp BP Pulse Ox 97.3 F 82 16 114/60 91 L 03/31/17 11:30 03/31/17 11:30 03/31/17 11:30 03/31/17 11:30 03/31/17 11:30 Intake & Output 03/30/17 03/31/17 04/01/17 06:59 06:59 06:59 Intake Total 300 7 Output Total 2825 450 Balance -2525 -443 Weight 98.1 kg 98 kg General appearance: PRESENT: no acute distress Eye exam: PRESENT: conjunctiva pink. ABSENT: scleral icterus Mouth exam: PRESENT: moist, tongue midline Neck exam: ABSENT: JVD Respiratory exam: PRESENT: decreased breath sounds - Decreased breath sounds in the left base.. ABSENT: rales, rhonchi, wheezes Cardiovascular exam: PRESENT: RRR. ABSENT: diastolic murmur, rubs, systolic murmur GI/Abdominal exam: PRESENT: normal bowel sounds, soft. ABSENT: distended, guarding, mass, organolmegaly, rebound, tenderness Extremities exam: ABSENT: calf tenderness, clubbing, pedal edema Neurological exam: PRESENT: alert, awake, oriented to person, oriented to place , oriented to time, oriented to situation, CN II-XII grossly intact. ABSENT: motor sensory deficit Psychiatric exam: PRESENT: appropriate affect Skin exam: PRESENT: dry, intact, warm. ABSENT: cyanosis, rash Results Laboratory Results: 03/30/17 20:16 03/30/17 20:16 03/30/17 03/30/17 20:16 20:16 WBC 9.0 RBC 4.23 L Hgb 13.5 Hct 39.3 MCV 93 MCH 31.9 MCHC 34.4 RDW 13.8 Plt Count 304 Seg Neutrophils % 61.3 Lymphocytes % 22.6 Monocytes % 9.4 Eosinophils % 6.1 H Basophils % 0.6 Absolute Neutrophils 5.5 Absolute Lymphocytes 2.0 Absolute Monocytes 0.8 Absolute Eosinophils 0.5 Absolute Basophils 0.1 Sodium 138.6 Potassium 3.9 Chloride 102 Carbon Dioxide 27 Anion Gap 10 BUN 21 H Creatinine 1.00 Est GFR ( Amer) > 60 Est GFR (Non-Af Amer) > 60 Glucose 111 H Calcium 8.3 L Impressions: Pelvis X-Ray 03/29/17 10:43 IMPRESSION: Hairline nondisplaced left sacral ala fracture seen on CT exam is not apparent by plain film. Bones are osteoporotic with advanced osteoarthritis right hip, and old left hip replacement. Chest/Abdomen CTA 03/29/17 11:06 IMPRESSION: 1. No PE. 2. Chronic left pleural effusion. Chest X-Ray 03/31/17 06:00 IMPRESSION: No acute findings Assessment & Plan - Diagnosis (1) Recurrent left pleural effusion Is this a current diagnosis for this admission?: Yes Plan: This most likely secondary to congestive heart failure. It is improving with diuresis. (2) Acute on chronic systolic (congestive) heart failure Is this a current diagnosis for this admission?: Yes Plan: We will continue with the IV Lasix. (3) Sacral fracture, closed Qualifiers: Encounter type: sequela Zone of sacrum fracture: unspecified portion of sacrum Qualified Code(s): S32.10XS - Unspecified fracture of sacrum, sequela Is this a current diagnosis for this admission?: Yes Plan: Continue with pain management. (4) CAD (coronary artery disease) Qualifiers: Coronary Disease-Associated Artery/Lesion type: [place] artery [place] vs. transplanted heart: [place] heart Associated angina: without angina Qualified Code(s): I25.10 - Atherosclerotic heart disease of [place] coronary artery without angina pectoris Is this a current diagnosis for this admission?: Yes Plan: Denies any chest pain. (5) Hyperlipidemia Qualifiers: Hyperlipidemia type: unspecified Qualified Code(s): E78.5 - Hyperlipidemia , unspecified Is this a current diagnosis for this admission?: Yes (6) Hypertension Qualifiers: Hypertension type: essential hypertension Qualified Code(s): I10 - Essential (primary) hypertension Is this a current diagnosis for this admission?: Yes (7) Do not resuscitate Is this a current diagnosis for this admission?: Yes - Time Time Spent with patient: 25-34 minutes
[2017-03-31] MEDS: ATORVASTATIN CALCIUM 10 MG TABLET PO SCH (22:39)
[2017-03-31] MEDS: SENNOSIDES/DOCUSATE 8.6-50 MG 1 EACH TABLET PO SCH (22:39)
[2017-04-01 06:02] LABS: ABSOLUTE BASOPHILS # (AUTO) 0.1 10^3/uL (0.0-0.2); ABSOLUTE EOSINOPHILS # (AUTO) 1.1 10^3/uL (0.0-0.6); ABSOLUTE LYMPHOCYTES (AUTO) 1.9 10^3/uL (0.5-4.7); ABSOLUTE MONOCYTES (AUTO) 0.9 10^3/uL (0.1-1.4); ABSOLUTE NEUT (AUTO) 5.2 10^3/uL (1.7-8.2); BASOPHILS % (AUTO) 0.8 % (0-2); EOSINOPHILS % (AUTO) 11.6 % (0-6); HEMATOCRIT 39.8 % (37.9-51.0); HEMOGLOBIN 13.7 g/dL (13.5-17.0); HGB HCT DIFFERENCE 1.3; LYMPHOCYTES % (AUTO) 20.5 % (13-45); MEAN CORPUSCULAR HEMOGLOBIN 31.9 pg (27.0-33.4); MEAN CORPUSCULAR HGB CONC 34.3 g/dL (32.0-36.0); MEAN CORPUSCULAR VOLUME 93 fl (80-97); MONOCYTES % (AUTO) 10.1 % (3-13); RED BLOOD COUNT 4.29 10^6/uL (4.35-5.55); RED CELL DISTRIBUTION WIDTH 13.6 % (11.5-14.0); WHITE BLOOD COUNT 9.2 10^3/uL (4.0-10.5)
[2017-04-01 06:14] LABS: ANION GAP 9 (5-19); BLOOD UREA NITROGEN 31 mg/dL (7-20); CALCIUM 8.4 mg/dL (8.4-10.2); CARBON DIOXIDE 28 mmol/L (22-30); CHLORIDE 102 mmol/L (98-107); CREATININE RESULT 1.09 mg/dL (0.52-1.25); GLUCOSE 110 mg/dL (75-110); POTASSIUM 3.7 mmol/L (3.6-5.0); SODIUM 138.7 mmol/L (137-145)
[2017-04-01] MEDS: CYANOCOBALAMIN (VITAMIN B-12) 1,000 MCG TABLET PO SCH (09:07)
[2017-04-01] MEDS: LANSOPRAZOLE 15 MG TAB.RAP.DR PO SCH ×2 (09:07→16:00)
[2017-04-01] MEDS: ENOXAPARIN SODIUM INJ 40 MG/0.4 ML DISP.SYRIN SUBCUT SCH (09:08)
[2017-04-01] MEDS: GUAIFENESIN 600 MG TABLET.SA PO SCH ×2 (09:08→21:59)
[2017-04-01] MEDS: FUROSEMIDE INJ/PF 40 MG/4 ML SDV IV SCH ×2 (09:08→23:52)
[2017-04-01] MEDS: TAMSULOSIN HCL 0.4 MG CAP.SR.24H PO SCH (09:08)
[2017-04-01] MEDS: METOPROLOL SUCCINATE 50 MG TAB.SR.24H PO SCH ×2 (09:08→23:51)
[2017-04-01] MEDS: POLYETHYLENE GLYCOL 3350 POWDER 17 GM/1 PACKET PO SCH (09:08)
[2017-04-01] MEDS: OXYCODONE HCL SR 10 MG TABLET PO SCH ×2 (09:08→21:59)
[2017-04-01] MEDS: ASPIRIN 81 MG TABLET, ENT COATED PO SCH (09:08)
[2017-04-01] MEDS: CHOLECALCIFEROL (D3) 1,000 UNIT TABLET PO SCH (09:08)
[2017-04-01] MEDS: LISINOPRIL 5 MG TABLET PO SCH (09:08)
[2017-04-01] MEDS: VITAMIN E (DL, ACETATE) 400 UNIT CAPSULE PO SCH (09:08)
[2017-04-01] MEDS: NYSTATIN CREAM 15 GM TP SCH ×2 (09:09→22:00)
[2017-04-01] MEDS: DOCUSATE SODIUM 100 MG CAPSULE PO SCH ×2 (09:12→17:08)
[2017-04-01] MEDS: HYDROCODONE/ACETAMINOPHEN 7.5-325 MG TABLET PO PRN ×2 (11:03→17:09)
--- NOTE | 2017-04-01 13:15 | PDOC PROGRESS REPORT ---
Subjective Progress Note for:: 04/01/17 Subjective:: He reports that his shortness of breath continues to improve. Physical Exam Vital Signs: Temp Pulse Resp BP Pulse Ox 97.8 F 78 18 106/48 L 93 04/01/17 11:53 04/01/17 11:53 04/01/17 11:53 04/01/17 11:53 04/01/17 11:53 Intake & Output 03/31/17 04/01/17 04/02/17 06:59 06:59 06:59 Intake Total 7 486 Output Total 450 500 Balance -443 -14 Weight 98 kg 98 kg General appearance: PRESENT: no acute distress Eye exam: PRESENT: conjunctiva pink. ABSENT: scleral icterus Mouth exam: PRESENT: moist, tongue midline Neck exam: ABSENT: JVD Respiratory exam: PRESENT: decreased breath sounds - Decreased breath sounds in the left base.. ABSENT: rales, rhonchi, wheezes Cardiovascular exam: PRESENT: RRR. ABSENT: diastolic murmur, rubs, systolic murmur GI/Abdominal exam: PRESENT: normal bowel sounds, soft. ABSENT: distended, guarding, mass, organolmegaly, rebound, tenderness Extremities exam: ABSENT: calf tenderness, clubbing, pedal edema Neurological exam: PRESENT: alert, awake, oriented to person, oriented to place , oriented to time, oriented to situation, CN II-XII grossly intact. ABSENT: motor sensory deficit Psychiatric exam: PRESENT: appropriate affect Skin exam: PRESENT: dry, intact, warm. ABSENT: cyanosis, rash Results Laboratory Results: 04/01/17 05:49 04/01/17 05:49 04/01/17 04/01/17 05:49 05:49 WBC 9.2 RBC 4.29 L Hgb 13.7 Hct 39.8 MCV 93 MCH 31.9 MCHC 34.3 RDW 13.6 Plt Count 265 Seg Neutrophils % 57.0 Lymphocytes % 20.5 Monocytes % 10.1 Eosinophils % 11.6 H Basophils % 0.8 Absolute Neutrophils 5.2 Absolute Lymphocytes 1.9 Absolute Monocytes 0.9 Absolute Eosinophils 1.1 H Absolute Basophils 0.1 Sodium 138.7 Potassium 3.7 Chloride 102 Carbon Dioxide 28 Anion Gap 9 BUN 31 H Creatinine 1.09 Est GFR ( Amer) > 60 Est GFR (Non-Af Amer) > 60 Glucose 110 Calcium 8.4 Impressions: Pelvis X-Ray 03/29/17 10:43 IMPRESSION: Hairline nondisplaced left sacral ala fracture seen on CT exam is not apparent by plain film. Bones are osteoporotic with advanced osteoarthritis right hip, and old left hip replacement. Chest/Abdomen CTA 03/29/17 11:06 IMPRESSION: 1. No PE. 2. Chronic left pleural effusion. Chest X-Ray 03/31/17 06:00 IMPRESSION: No acute findings Assessment & Plan - Diagnosis (1) Recurrent left pleural effusion Is this a current diagnosis for this admission?: Yes Plan: This most likely secondary to congestive heart failure. It is improving with diuresis. (2) Acute on chronic systolic (congestive) heart failure Is this a current diagnosis for this admission?: Yes Plan: We will continue with the IV Lasix. (3) Sacral fracture, closed Qualifiers: Encounter type: sequela Zone of sacrum fracture: unspecified portion of sacrum Qualified Code(s): S32.10XS - Unspecified fracture of sacrum, sequela Is this a current diagnosis for this admission?: Yes Plan: Continue with pain management and physical therapy. (4) CAD (coronary artery disease) Qualifiers: Coronary Disease-Associated Artery/Lesion type: [place] artery [place] vs. transplanted heart: [place] heart Associated angina: without angina Qualified Code(s): I25.10 - Atherosclerotic heart disease of [place] coronary artery without angina pectoris Is this a current diagnosis for this admission?: Yes Plan: Denies any chest pain. (5) Hyperlipidemia Qualifiers: Hyperlipidemia type: unspecified Qualified Code(s): E78.5 - Hyperlipidemia , unspecified Is this a current diagnosis for this admission?: Yes (6) Hypertension Qualifiers: Hypertension type: essential hypertension Qualified Code(s): I10 - Essential (primary) hypertension Is this a current diagnosis for this admission?: Yes (7) Do not resuscitate Is this a current diagnosis for this admission?: Yes - Time Time Spent with patient: 15-24 minutes - Inpatient Certification Medical Necessity: Need Close Monitoring Due to Risk of Patient Decompensation - Plan Summary Plan Summary: If he continues to improve we can hopefully discharge home tomorrow.
[2017-04-01] MEDS: SENNOSIDES/DOCUSATE 8.6-50 MG 1 EACH TABLET PO SCH (21:59)
[2017-04-01] MEDS: ATORVASTATIN CALCIUM 10 MG TABLET PO SCH (21:59)
[2017-04-02 06:47] LABS: ANION GAP 9 (5-19); BLOOD UREA NITROGEN 32 mg/dL (7-20); CALCIUM 8.6 mg/dL (8.4-10.2); CARBON DIOXIDE 31 mmol/L (22-30); CHLORIDE 100 mmol/L (98-107); CREATININE RESULT 1.21 mg/dL (0.52-1.25); GLUCOSE 116 mg/dL (75-110); POTASSIUM 4.2 mmol/L (3.6-5.0); SODIUM 139.5 mmol/L (137-145)
[2017-04-02] MEDS: LANSOPRAZOLE 15 MG TAB.RAP.DR PO SCH ×2 (08:27→16:23)
[2017-04-02] MEDS: VITAMIN E (DL, ACETATE) 400 UNIT CAPSULE PO SCH (09:27)
[2017-04-02] MEDS: TAMSULOSIN HCL 0.4 MG CAP.SR.24H PO SCH (09:27)
[2017-04-02] MEDS: OXYCODONE HCL SR 10 MG TABLET PO SCH (09:27)
[2017-04-02] MEDS: CHOLECALCIFEROL (D3) 1,000 UNIT TABLET PO SCH (09:27)
[2017-04-02] MEDS: ASPIRIN 81 MG TABLET, ENT COATED PO SCH (09:27)
[2017-04-02] MEDS: DOCUSATE SODIUM 100 MG CAPSULE PO SCH ×2 (09:27→17:31)
[2017-04-02] MEDS: POLYETHYLENE GLYCOL 3350 POWDER 17 GM/1 PACKET PO SCH (09:27)
[2017-04-02] MEDS: GUAIFENESIN 600 MG TABLET.SA PO SCH (09:27)
[2017-04-02] MEDS: FUROSEMIDE INJ/PF 40 MG/4 ML SDV IV SCH (09:28)
[2017-04-02] MEDS: METOPROLOL SUCCINATE 50 MG TAB.SR.24H PO SCH (09:28)
[2017-04-02] MEDS: NYSTATIN CREAM 15 GM TP SCH (09:28)
[2017-04-02] MEDS: ENOXAPARIN SODIUM INJ 40 MG/0.4 ML DISP.SYRIN SUBCUT SCH (09:28)
[2017-04-02] MEDS: LISINOPRIL 5 MG TABLET PO SCH (09:28)
[2017-04-02] MEDS: CYANOCOBALAMIN (VITAMIN B-12) 1,000 MCG TABLET PO SCH (09:28)
--- NOTE | 2017-04-02 09:46 | PDOC TRANSFER SUMMARY ---
General - Admit/Disc Date/PCP Admission Date/Primary Care Provider: 03/29/17 19:32 DOMENIC GUADARRAMA MD Discharge Date: 04/02/17 - Discharge Diagnosis (1) Recurrent left pleural effusion Is this a current diagnosis for this admission?: Yes Summary: Is felt that the pleural effusion secondary to systolic congestive heart failure. He has responded to IV Lasix. Will send out on p.o. Lasix per (2) Acute on chronic systolic (congestive) heart failure Is this a current diagnosis for this admission?: Yes (3) Sacral fracture, closed Is this a current diagnosis for this admission?: Yes (4) CAD (coronary artery disease) Is this a current diagnosis for this admission?: Yes (5) Hyperlipidemia Is this a current diagnosis for this admission?: Yes (6) Hypertension Is this a current diagnosis for this admission?: Yes (7) Do not resuscitate Is this a current diagnosis for this admission?: Yes - Additional Information Resuscitation Status: Do Not Resuscitate Discharge Diet: Cardiac Discharge Activity: Activity As Tolerated Home Medications: Aspirin [Aspirin EC] 81 mg PO DAILY 03/30/17 Cholecalciferol (Vitamin D3) [Vitamin D3] 2,000 unit PO DAILY 03/30/17 Clopidogrel Bisulfate [Plavix 75 mg Tablet] 75 mg PO DAILY 03/30/17 Cyanocobalamin (Vitamin B-12) [Vitamin B-12] 1,000 mcg SL DAILY 03/30/17 Lansoprazole [Prevacid 15 mg Odt Tablet] 15 mg PO BID 03/30/17 Metoprolol Succinate [Toprol Xl 50 mg Tab.sr] 50 mg PO DAILY 03/30/17 Pravastatin Sodium [Pravachol] 40 mg PO DAILY 03/30/17 Tamsulosin HCl [Flomax 0.4 mg Cap.sr] 0.4 mg PO DAILY 03/30/17 Vitamin E (Dl,Tocopheryl Acet) [Vitamin E] 400 unit PO DAILY 03/30/17 Docusate Sodium [Colace 100 mg Capsule] 100 mg PO BID capsule 04/02/17 Furosemide [Lasix 40 mg Tablet] 40 mg PO BID #60 tablet 04/02/17 Lisinopril [Prinivil 5 mg Tablet] 5 mg PO DAILY #30 tablet 04/02/17 Oxycodone HCl [Oxycontin Sr 10 mg Tablet] 10 mg PO Q12 #60 tab.sr.12h 04/02/17 Polyethylene Glycol 3350 [Miralax Powder 17 gm/Packet] 17 gm PO DAILY powd.pack 04/02/17 History of Present Illness Admission Date/PCP: 03/29/17 19:32 DOMENIC GUADARRAMA MD History of Present Illness: BÁRBARA ROBERT JR is a 89 year old male with history of CAD status post CABG in the past. Patient had recent admission for sacral fracture after a fall about 2 weeks ago, discharged to rehab. Patient had increased shortness of breath facility and Chest x-ray was done and there was concern for pneumonia. Patient was sent to the ED where evaluation was significant for 500 cc left pleural effusion on CTA of the chest, no PE. BNP elevated at 600. Patient denies chest pain, no palpitations. He has some orthopnea, but no PND. Denies fever or chills. Has intermittent lower extremity swelling. He is being admitted for further evaluation and management. Hospital Course Hospital Course: 89-year-old gentleman who presented with shortness of breath. He was found to have a large left pleural effusion. The patient was felt to have a systolic congestive heart failure as the cause. He was started on IV Lasix and had good diuresis. On the day of discharge he was back to his baseline. His creatinine did increase slightly while on the IV Lasix but still remained within the normal range. We will be discharged home on p.o. Lasix. Patient's other medical problems including coronary artery disease and hypertension were stable during this hospitalization. Patient does have a sacral fracture secondary to recent fall. He will need physical therapy and strengthening because of that. Physical Exam Vital Signs: Temp Pulse Resp BP Pulse Ox 97.7 F 68 18 118/51 L 99 04/02/17 07:00 04/02/17 07:00 04/02/17 07:00 04/02/17 07:00 04/02/17 08:58 Intake & Output 04/01/17 04/02/17 04/03/17 06:59 06:59 06:59 Intake Total 486 1335 Output Total 500 1200 Balance -14 135 Weight 98 kg 98 kg General appearance: PRESENT: no acute distress, well-developed, well-nourished Head exam: PRESENT: atraumatic, normocephalic Eye exam: PRESENT: conjunctiva pink, EOMI, PERRLA. ABSENT: scleral icterus Ear exam: PRESENT: normal external ear exam Mouth exam: PRESENT: moist, tongue midline Neck exam: ABSENT: carotid bruit, JVD, lymphadenopathy, thyromegaly Respiratory exam: PRESENT: decreased breath sounds - Decreased breath sounds in the left base. ABSENT: rales, rhonchi, wheezes Cardiovascular exam: PRESENT: RRR. ABSENT: diastolic murmur, rubs, systolic murmur Pulses: PRESENT: normal dorsalis pedis pul GI/Abdominal exam: PRESENT: normal bowel sounds, soft. ABSENT: distended, guarding, mass, organolmegaly, rebound, tenderness Rectal exam: PRESENT: deferred Extremities exam: ABSENT: calf tenderness, clubbing, pedal edema Neurological exam: PRESENT: alert, awake, oriented to person, oriented to place , oriented to time, oriented to situation, CN II-XII grossly intact. ABSENT: motor sensory deficit Psychiatric exam: PRESENT: appropriate affect Skin exam: PRESENT: dry, intact, warm. ABSENT: cyanosis, rash Results Laboratory Results: 04/01/17 05:49 04/02/17 06:14 04/02/17 06:14 Sodium 139.5 Potassium 4.2 Chloride 100 Carbon Dioxide 31 H Anion Gap 9 BUN 32 H Creatinine 1.21 Est GFR ( Amer) > 60 Est GFR (Non-Af Amer) 56 L Glucose 116 H Calcium 8.6 Impressions: Pelvis X-Ray 03/29/17 10:43 IMPRESSION: Hairline nondisplaced left sacral ala fracture seen on CT exam is not apparent by plain film. Bones are osteoporotic with advanced osteoarthritis right hip, and old left hip replacement. Chest/Abdomen CTA 03/29/17 11:06 IMPRESSION: 1. No PE. 2. Chronic left pleural effusion. Chest X-Ray 03/31/17 06:00 IMPRESSION: No acute findings Transfer Plan - Disposition Transfer Plan: Patient is to be transferred to [facility] for rehab. He will need physical therapy there. - Time Spent with Patient Time spent with patient: Greater than 30 Minutes Qualifiers PATEINT BEING DISCHARGED WITH ANY OF THE FOLLOWING DIAGNOSIS?: Heart Failure HF Pt being discharged on ACEI for LVEF less than 40%?: Yes HF Pt being discharged on ARBS for LVEF less than 40%?: No Reason(s) for not prescribing ARBS:: Not indicated Plan Discharge Plan: Patient is to be transferred to [facility] for rehab. Follow-up with his primary care doctor in 2 weeks. Time Spent: Greater than 30 Minutes
[2017-04-02 11:59] VITALS: BP 114/49
[2017-04-02] MEDS ORDERED: GLYCERIN (PEDIATRIC) SUPP.RECT PR PRN (13:00)
[2017-04-02] MEDS ORDERED: IPRATROPIUM/ALBUTEROL 0.5-2.5 MG/3 ML AMPUL NEB PRN (13:00)
== END 2017-04-02 18:12 | DRG 293 ==
LOC: ER 09:16 → EH 16:49 → UNDOADMIN 16:49 → EH 19:32 → 4S 19:56
PROVIDERS: ADMIT Pediatrics; ATTEND Pediatrics
PROC: 3E0F73Z Introduction of Anti-inflammatory into Respiratory Tract, Via Natural or Artificial Opening (ICD-10-PCS; principal; 2017-03-30)
DX: I11.0 Hypertensive heart disease with heart failure (principal); I50.23 Acute on chronic systolic (congestive) heart failure; S32.10XS Unspecified fracture of sacrum, sequela; W19.XXXA Unspecified fall, initial encounter; I25.10 Atherosclerotic heart disease of native coronary artery without angina pectoris; E78.5 Hyperlipidemia, unspecified; N40.0 Benign prostatic hyperplasia without lower urinary tract symptoms; M19.90 Unspecified osteoarthritis, unspecified site; M81.0 Age-related osteoporosis without current pathological fracture; I45.10 Unspecified right bundle-branch block; Z66 Do not resuscitate; Z79.899 Other long term (current) drug therapy; Z79.1 Long term (current) use of non-steroidal anti-inflammatories (NSAID); Z96.642 Presence of left artificial hip joint; Z79.82 Long term (current) use of aspirin
CPT/HCPCS: 36415; 71020; 71275; 72170; 80048; 80053; 81001; 82803; 82962; 83605; 83880; 84443; 84484; 85025; 85610; 87040; 87086; 87088; 87186; 93005; 93010; 93306; 94640; 99285; G8978-GP; G8979-GP; J1650; J1940; J2405; J3490

== ENCOUNTER → 2017-07-29 | Outpatient (CLI) | payer MEDICARE, BC ==
--- NOTE | 2017-07-29 19:28 | RADIOLOGY REPORT (SQ) ---
EXAM DESCRIPTION: CHEST PA/LATERAL COMPLETED DATE/TIME: 07/29/2017 5:56 pm REASON FOR STUDY: PLEURAL EFFUSION, NOT ELSEWHERE CLASSIFIED COMPARISON: 03/31/2017 EXAM PARAMETERS: NUMBER OF VIEWS: two views TECHNIQUE: Digital Frontal and Lateral radiographic views of the chest acquired. RADIATION DOSE: NA LIMITATIONS: none FINDINGS: LUNGS AND PLEURA: There appear to be chronic pleural changes in the left base. A small le ft pleural effusion cannot be excluded. No acute infiltrate is appreciated. MEDIASTINUM AND HILAR STRUCTURES: No masses or contour abnormalities. HEART AND VASCULAR STRUCTURES: Heart normal size. No evidence for failure. BONES: Multiple old rib fractures are seen on the left. There is results in slight deformity of the left hemithorax. HARDWARE: Sternotomy wires. Graft markers. OTHER: No other significant finding. IMPRESSION: Cannot exclude a small left pleural effusion. TECHNICAL DOCUMENTATION: JOB ID: [id number] [employer]- All Rights Reserved Reading location - IP/workstation name: [email or web address]
== END ==
LOC: OD 16:37
PROVIDERS: ATTEND Physician Assistant
DX: J90 Pleural effusion, not elsewhere classified (principal)
CPT/HCPCS: 71046